=== PATIENT | male | born 1940 | race Caucasian/White ===

== ENCOUNTER 2019-08-06 10:59 | Emergency (ER) | payer OTHER, SELFPAY ==
[2019-08-06 11:11] VITALS: BP 112/73; PULSE 114; RESP 16; TEMP 36.6; O2SAT 94; BMI 26.4
[2019-08-06 11:43] LABS: Basophils # 0.1 10^3/uL (0.0-0.1); Basophils % 0.4 %; Eosinophils % 0.1 %; Hematocrit 58.1 % (42.0-52.0); Hemoglobin 18.6 g/dL (11.7-16.6); Lymphocytes # 0.8 10^3/uL (0.8-4.8); Lymphocytes % 6.7 %; Mean Corpuscular Volume 90.5 fL (80-94); Mean Platelet Volume 10.3 fL (7.4-10.4); Monocytes # 0.6 10^3/uL (0.2-0.9); Monocytes % 4.5 %; Neutrophils # 10.9 10^3/uL (1.8-7.7); Neutrophils % 87.8 %; Nucleated Red Blood Cells % 0 %; Platelet Count 207 10^3/cmm (130-400); Red Blood Count 6.42 10^6/uL (4.1-5.3); Red Cell Distribution Width 14.2 % (12.1-15.1); White Blood Count 12.4 10^3/uL (4.0-10.0)
--- NOTE | 2019-08-06 11:55 | ED_ITS ---
Entered by Barbara Mccarthy, acting as scribe for Aug 06, 2019 10:59 HPI - Abdominal Pain General: Chief Complaint: Abdominal Pain Stated Complaint: abd pain Time Seen by Provider: 08/06/19 11:55 Source: patient and RN notes reviewed Mode of arrival: ambulatory Limitations: no limitations History of Present Illness: HPI narrative: 79 yo male presents to ED with complaints of abdominal pain. The patient states this began Monday morning at around 0200 and he has been unable to eat or drink much of anything. His friend states the patient told him it was sharp pain. He has never had this pain before. His last bowel movement was yesterday and was normal. The patient states he has been vomiting and will do so every time he eats or drinks. The patient is diabetic and his blood sugar has been normal for him (186 this morning). MD elicited complaint: abdominal pain Pertinent past history: none and gastrointestinal bleeding Onset (ago): day(s) (2) Pain Consistency: constant Location: Diffuse Severity: severe Quality: sharp Radiation: none Migration to: no migration Exacerbating factors: eating Relieving factors: nothing Associated Symptoms: Reports nausea, vomiting and other (tender to palpation, no rigidity, diminished bowel sounds) Treatments prior to arrival: NSAIDs Review of Systems Const: Reports: malaise Card: Reports: other (tachycardia) Resp: Reports: pain on inspiration GI: Reports: abdominal pain, nausea, vomiting and other (tender to palpation, no rigidity, diminished bowel sounds) PFS ED PFSH: Statuses (acute, chronic, etc) shown below reflect problem list status as previously entered and may not be historically accurate Social History Smoking and tobacco status: never smoked Physical Exam Const: COMMON NORMALS: no apparent distress, average body habitus, oriented x3, no limitations, healthy appearing, alert and well nourished HENMT: COMMON NORMALS: normocephalic, external ears normal and external nose normal HEAD & SCALP: normocephalic NOSE: external nose normal EXTERNAL EAR: Yes external ears normal MOUTH: oral and palatal mucosa normal THROAT: posterior oropharynx normal Eye: COMMON NORMALS: PERRL, EOMs intact bilaterally, conjunctivae normal, no scleral icterus and normal visual holland by confrontation CONJUNCTIVA: Yes conjunctivae normal PUPIL: Yes PERRL Neck/C-Spine: COMMON NORMALS: full ROM, no lymphadenopathy, supple, no meningeal signs and no JVD CERVICAL SPINE: Yes cervical ROM normal Lymph: LYMPHATIC: no lymphadenopathy noted Chest: COMMONS NORMALS: inspection of chest normal Resp: COMMON NORMALS: normal respiratory effort, no retractions, no use of accessory muscles and clear to auscultation bilaterally AUSCULTATION: clear to auscultation bilaterally Cardio: COMMON NORMALS: no JVD, regular rate, regular rhythm, no gallops, no clicks, no murmurs and no rub RATE: regular rate RHYTHM: regular rhythm GI: OTHER: Diminished bowel sounds, diffusely tender to palpation entire abdomen. No rigidity : COMMON NORMALS: Yes no CVA tenderness BLADDER/KIDNEY EXAM: Yes no CVA tenderness Back/Pelvis: COMMON NORMALS: no CVA tenderness Extremity: COMMON NORMALS: normal to inspection Neuro: COMMON NORMALS: oriented x3 SENSORIUM/ORIENTATION: Yes alert MENINGEAL SIGNS: Yes no meningeal signs SPEECH: speech normal Psych: COMMON NORMALS: mental status grossly normal, thought process normal, cooperative, affect normal, speech normal, activity/motor behavior normal, denies hallucinations, denies homicidal ideation and denies suicidal ideation SPEECH: Yes normal speech THOUGHT PROCESS: normal thought process Skin: COMMON NORMALS: no rashes or lesions noted GENERAL SKIN EXAM: no rashes or lesions noted Course Vital Signs: Vital signs: Vital Signs Temperature 97.9 F 08/06/19 11:11 Pulse Rate 99 08/06/19 14:18 Respiratory Rate 13 08/06/19 14:18 Blood Pressure 103/67 08/06/19 14:18 Pulse Oximetry 92 08/06/19 14:18 MDM - Abdominal Pain MDM Narrative: Medical decision making narrative: Labs are unremarkable as well as urine. We will go ahead and order a lactic acid and Pepcid IV and reevaluate. Patient had a normal bowel movement yesterday but has vomited numerous times. He did not have any bowel sounds at all for me and was tender diffusely to even very light palpation CT scan is unremarkable. 1343 patient feeling slightly better no vomiting and does not feel nauseated at this time will try p.o. challenge. Reexamined abdomen is not rigid he is nontoxic-appearing he is diffusely tender to moderate palpation instead of light palpation which is improved from his initial exam. 1445 patient tolerated p.o. challenge. Reexamined still has decreased bowel sounds but abdominal exam has improved from even last time and is only tender to deep palpation. Asked him to follow-up with his doctor tomorrow for recheck and return to the ER if worse he agrees and his younger friend that brought him in was also updated on plan all questions answered Lab Data: Labs: Lab Results 08/06/19 08/06/19 08/06/19 Range/Units 11:28 11:28 12:00 WBC 12.4 H (4.0-10.0) 10^3/ uL RBC 6.42 H (4.1-5.3) 10^6/u L Hgb 18.6 H (11.7-16.6) g/dL Hct 58.1 H (42.0-52.0) % MCV 90.5 (80-94) fL MCH 29.0 (28.0-34.0) pg MCHC 32.0 (30.0-36.0) g/dL RDW 14.2 (12.1-15.1) % Plt Count 207 (130-400) 10^3/c mm MPV 10.3 (7.4-10.4) fL Neut % (Auto) 87.8 % Lymph % (Auto) 6.7 % Montgomery % (Auto) 4.5 % Eos % (Auto) 0.1 % Baso % (Auto) 0.4 % Neut # (Auto) 10.9 H (1.8-7.7) 10^3/u L Lymph # (Auto) 0.8 (0.8-4.8) 10^3/u L Montgomery # (Auto) 0.6 (0.2-0.9) 10^3/u L Eos # (Auto) 0.0 (0.0-0.8) 10^3/u L Baso # (Auto) 0.1 (0.0-0.1) 10^3/u L Nucleated RBC % (a uto) 0 % Nucleated RBCs # 0.0 /100WBC Sodium 141 (136-145) mmol/L Potassium 3.7 (3.5-5.1) mmol/L Chloride 95 L (98-107) mmol/L Carbon Dioxide 26 (22-29) mmol/L Anion Gap 23.7 H (5-19) BUN 25 H (8-23) mg/dL Creatinine 1.5 H (0.7-1.2) mg/dL Glucose 191 H (65-115) mg/dL Lactic Acid (Sepsi s) (0.5-2.2) mmol/L Calcium 10.3 (8.5-10.5) mg/dL Total Bilirubin 1.6 H (0.15-1.2) mg/dL AST 16 (0-40) U/L ALT 10 (0-41) U/L Alkaline Phosphata se 70 (40-130) IU/L Total Protein 8.7 (6.6-8.7) g/dL Albumin 4.0 (3.5-5.2) g/dL Globulin 4.7 H (1.3-4.6) g/dL Lipase 7 L (13-60) U/L Urine Color Dark yellow (Yellow) Urine Appearance Clear (CLEAR) Urine pH 5 (5-7) Ur Specific Gravit y 1.020 (1.005-1.030) Urine Protein Neg (Negative) Urine Glucose (UA) 4+ H (Normal) Urine Ketones Negative (Negative) Urine Occult Blood Neg (Negative) Urine Nitrate Negative (Negative) Urine Bilirubin 1+ H (NEGATIVE) Urine Urobilinogen 1 H (Negative) mg/dL Ur Leukocyte Tiff ase Negative (Negative) 08/06/19 Range/Units 13:31 WBC (4.0-10.0) 10^3/ uL RBC (4.1-5.3) 10^6/u L Hgb (11.7-16.6) g/dL Hct (42.0-52.0) % MCV (80-94) fL MCH (28.0-34.0) pg MCHC (30.0-36.0) g/dL RDW (12.1-15.1) % Plt Count (130-400) 10^3/c mm MPV (7.4-10.4) fL Neut % (Auto) % Lymph % (Auto) % Montgomery % (Auto) % Eos % (Auto) % Baso % (Auto) % Neut # (Auto) (1.8-7.7) 10^3/u L Lymph # (Auto) (0.8-4.8) 10^3/u L Montgomery # (Auto) (0.2-0.9) 10^3/u L Eos # (Auto) (0.0-0.8) 10^3/u L Baso # (Auto) (0.0-0.1) 10^3/u L Nucleated RBC % (a uto) % Nucleated RBCs # /100WBC Sodium (136-145) mmol/L Potassium (3.5-5.1) mmol/L Chloride (98-107) mmol/L Carbon Dioxide (22-29) mmol/L Anion Gap (5-19) BUN (8-23) mg/dL Creatinine (0.7-1.2) mg/dL Glucose (65-115) mg/dL Lactic Acid (Sepsi s) 1.8 (0.5-2.2) mmol/L Calcium (8.5-10.5) mg/dL Total Bilirubin (0.15-1.2) mg/dL AST (0-40) U/L ALT (0-41) U/L Alkaline Phosphata se (40-130) IU/L Total Protein (6.6-8.7) g/dL Albumin (3.5-5.2) g/dL Globulin (1.3-4.6) g/dL Lipase (13-60) U/L Urine Color (Yellow) Urine Appearance (CLEAR) Urine pH (5-7) Ur Specific Gravit y (1.005-1.030) Urine Protein (Negative) Urine Glucose (UA) (Normal) Urine Ketones (Negative) Urine Occult Blood (Negative) Urine Nitrate (Negative) Urine Bilirubin (NEGATIVE) Urine Urobilinogen (Negative) mg/dL Ur Leukocyte Tiff ase (Negative) Imaging Data ^: CT Abd/Pel: Radiologist's impression: [address] [address] [address] Scan Report Signed Patient: Doni Bonilla #: [id number] : [id number]#:[id number] Age/Sex: 79 / MADM Date: 08/06/19 Loc: ERRoom/Bed: Attending Dr: Ordering Provider/Ordering MD: Vivienne Ortega MD Date of Service: 08/06/19 Procedure(s): CT abdomen pelvis [facility] [address] Accession Number(s): [id number] Report Number: [id number] WS: [id number] CT scan of the abdomen and pelvis without Oral and IV contrast. Additional two- dimensional coronal and sagittal reconstruction was performed. 08/06/2019 Clinical Data: diffuse abd pain Comparison: None. DLP: 665.[address] scans at [facility] use at least one of these dose optimization techniques: automated exposure control; mA and/or kV adjustment per patient size (includes targeted exams where dose is matched to clinical indication); or iterative reconstruction. Findings: The lower lungs show no nodules, masses or effusions. There is a small hiatal hernia and minimal coronary artery calcification. The liver, gallbladder, spleen, adrenal glands and pancreas are normal. The kidneys show no cysts, masses, hydronephrosis or renal calculi.. The abdominal aorta is normal in size. No appendicitis or diverticulitis is seen. No abscess, adenopathy, ascites, mass, obstruction or free air is seen. The bladder is unremarkable. The prostate is enlarged with central calcification. No inguinal hernia is seen. The bones of the lower thorax, lumbar spine, pelvis, and hips show degenerative disc disease at L4-L5 and L5-S1. CT/CT abdomen pelvis wo con [id number] Impression: Negative for acute intra-abdominal or pelvic abnormalities. Dictated By:Nilda Emerson MD Signed By:Nilda Emerson MDSigned Date/Time:08/06/19 1314 DD/ Discharge Plan Discharge Patient Disposition: Home, Self-Care Clinical Impression: Abdominal pain Qualifiers: Abdominal location: generalized Qualified Code(s): R10.84 - Generalized abdominal pain Condition: Stable Discharge Orders: Discharge Order (Routine); Ordered 08/06/19 Ordered By: Vivienne Ortega Discharge Diet: Advance as tolerated Patient Instructions: Abdominal Pain (ED) Activity Restrictions/Additional Instructions: Follow-up with your doctor tomorrow. Return to the ER if worse in any way. Coding Level of Care Code ED Fur Vault Attendant for Chg Fwd Exam Problem Focused The documentation recorded by the Shari pop Valerie R, accurately reflects the service I personally performed and the decisions made by Jordan blanchard Megan, MD Aug 06, 2019 10:59
[2019-08-06 12:00] LABS: Alanine Aminotransferase 10 U/L (0-41); Alkaline Phosphatase 70 IU/L (40-130); Anion Gap 23.7 (5-19); Aspartate Amino Transferase 16 U/L (0-40); Blood Urea Nitrogen 25 mg/dL (8-23); Calcium 10.3 mg/dL (8.5-10.5); Carbon Dioxide 26 mmol/L (22-29); Chloride 95 mmol/L (98-107); Globulin 4.7 g/dL (1.3-4.6); Glucose 191 mg/dL (65-115); Lipase 7 U/L (13-60); Potassium 3.7 mmol/L (3.5-5.1); Sodium 141 mmol/L (136-145); Total Bilirubin 1.6 mg/dL (0.15-1.2); Total Protein 8.7 g/dL (6.6-8.7)
--- NOTE | 2019-08-06 12:09 | CT_ITS ---
WS: [id number] CT scan of the abdomen and pelvis without Oral and IV contrast. Additional two-dimensional coronal an d sagittal reconstruction was performed. 08/06/2019 Clinical Data: diffuse abd pain Comparison: None. DLP: 665.[address] scans at [facility] use at least one of these dose optimization techniques: automat ed exposure control; mA and/or kV adjustment per patient size (includes targeted exams where dose is matched to clinical indication); or iterative reconstruction. Findings: The lower lungs show no nodules, masses or effusions. There is a small hiatal hernia and minimal tana nary artery calcification. The liver, gallbladder, spleen, adrenal glands and pancreas are normal. The kidneys show no cysts, masses, hydronephrosis or renal calculi.. The abdominal aorta is normal in size. No appendicitis or diverticulitis is seen. No abscess, adenopathy, ascites, mass, obstruction or free air is seen. The bladder is unremarkable. The prostate is enlarged with central calcification. No inguinal hernia is seen. The bones of the lower thorax, lumbar spine, pelvis, and hips show degenerative disc disease at L4-L5 and L5-S1. CT/CT abdomen pelvis wo con [id number] Impression: Negative for acute intra-abdominal or pelvic abnormalities.
[2019-08-06] MEDS: sodium chloride 0.9% 1,000 ML 999 ML IV (12:17)
[2019-08-06] MEDS: ondansetron 2 mg/ML SDV 2 mL 4 MG IVP ×2 (12:17→15:07)
[2019-08-06 12:19] VITALS: BP 92/61; PULSE 106; RESP 18; O2SAT 90
[2019-08-06 12:30] VITALS: BP 114/71; O2SAT 85; O2SAT 92
[2019-08-06 12:35] LABS: Add Urine Microscopic? NO
[2019-08-06 12:39] LABS: Bilirubin Urine 1+ (NEGATIVE); Blood Urine Neg (Negative); Glucose Urine UA 4+ (Normal); Ketones Urine Negative (Negative); Leukocyte Esterase Urine Negative (Negative); Nitrate Urine Negative (Negative); Protein Urine Neg (Negative); Urine Appearance Clear (CLEAR); Urine Color Dark Yellow (Yellow); Urobilinogen Urine 1 mg/dL (Negative); pH Urine 5 (5-7)
[2019-08-06] MEDS: famotidine 20 mg/2 mL INJ IVP (13:27)
[2019-08-06 13:53] LABS: Lactic Acid level (Lactate) 1.8 mmol/L (0.5-2.2)
[2019-08-06 14:18] VITALS: BP 103/67; PULSE 99; RESP 13; O2SAT 92
[2019-08-06] MEDS: sodium chloride 0.9% 500 ML 999 ML IV (15:07)
[2019-08-06 15:42] VITALS: BP 103/62; PULSE 103; RESP 18; O2SAT 91
== END 2019-08-06 15:40 | disposition home or self-care (01) ==
PROVIDERS: Nurse Practitioner Family; Emergency Provider Emergency Medicine
DX: R10.84 Generalized abdominal pain (principal)
CPT/HCPCS: 36415; 74176; 80053; 81003; 83605; 83690; 85025; 96360; 96361; 96374; 96375; 99283; A9270; J2405; J3490; J7030; J7040